=== PATIENT | male | born 1965 | race Caucasian/White ===

== ENCOUNTER 2020-01-13 11:03 | Emergency (ER) | payer BC ==
[2020-01-13 11:18] VITALS: BP 149/80
--- NOTE | 2020-01-13 11:33 | UC ---
Ear Complaint HPI - HPI Summary HPI Summary: Congestion and RIGHT ear plugged x3 weeks. Tried nasal sprays and otc decongestants w/ no relief. HAS OCCASIONAL COUGH BUT NO FEVER. denies known exposures to covid BUT DID TRAVEL TO [place] AND BACK IN DEC AND LANDED IN [facility] 12/20. Denies fever, sob. - History of Current Complaint Chief Complaint: UCRespiratory Stated Complaint: EAR COMPLAINT, CONGESTION Time Seen by Provider: 01/13/20 11:27 Hx Obtained From: Patient Pain Intensity: 0 - Allergies/Home Medications Allergies/Adverse Reactions: Allergies Allergy/AdvReac Type Severity Reaction Status Date / Time Penicillins Allergy Hives Verified 01/13/20 11:13 Home Medications: Home Medications NK [No Home Medications Reported] 01/13/20 [History Confirmed 01/13/20] PMH/Surg Hx/FS Hx/Imm Hx - Additional Past Medical History Additional PMH: no chronic illnesses Previously Healthy: Yes - Surgical History Surgical History: Yes Surgery Procedure, Year, and Place: tonsillectomy. wrist surgery - Family History Known Family History: Positive: Unknown - Social History Alcohol Use: Occasionally Substance Use Type: None Smoking Status (MU): Never Smoked Tobacco - Immunization History Most Recent Tetanus Shot: unknown Review of Systems All Other Systems Reviewed And Are Negative: Yes Constitutional: Negative: Fever, Chills, Fatigue ENT: Positive: Nasal Discharge, Sinus Congestion, Other - ear plugged R side. Negative: Sore Throat, Ear Ache, Sinus Pain/Tenderness Respiratory: Positive: Cough - occasional. Negative: Shortness Of Breath Cardiovascular: Negative: Chest Pain Neurological/Mental Status: Negative: Headache Physical Exam Triage Information Reviewed: Yes Appearance: Well-Appearing Vital Signs: Initial Vital Signs Temp 98.1 F 01/13/20 11:14 Pulse 71 01/13/20 11:14 Resp 16 01/13/20 11:14 BP 149/80 01/13/20 11:14 Pulse Ox 97 01/13/20 11:14 Vital Signs Reviewed: Yes Eyes: Positive: Conjunctiva Clear ENT: Positive: Pharynx normal, Nasal congestion, TMs normal, Uvula midline Neck: Positive: Supple, Nontender, No Lymphadenopathy Respiratory: Positive: Lungs clear Cardiovascular Exam: Normal Neurological: Positive: Alert. Negative: Lethargic Skin: Negative: Rashes Ear Complaint Course/Dx - Course Course Of Treatment: Simple URI symptoms and good vitals. There was some concern for COVID given mild symptoms but NO SOB. The concern was that he was coming from [place] from a plane in Dec 2019. RAPID STREP NEG. RAPID FLU NEG. ID Nurse/SPIKE OLIVIER called and discussed case on whether he should be 'approved' to be tested. She asked for demographic info due to different criteria from different counties. Due to the strict criteria from that particular county he was not approved to be tested. I discussed this w/ the pt. who was masked the entire time and was placed on droplet precaution after he was being considered for COVID testing. He is stable and was told to go to the emergency room if he develops worsening respiratory symptoms. - Differential Dx/Diagnosis Differential Diagnosis/HQI/PQRI: Pharyngitis, URI, Other Provider Diagnosis: URI (upper respiratory infection) Discharge ED - Sign-Out/Discharge Documenting (check all that apply): Patient Departure All imaging exams completed and their final reports reviewed: No Studies - Discharge Plan Condition: Stable Disposition: HOME Patient Education Materials: Upper Respiratory Infection (ED) Referrals: No Primary Care Phys,NOPCP [Primary Care Provider] - Additional Instructions: IF YOU DEVELOP ANY BREATHING ISSUES PLEASE GO TO THE EMERGENCY ROOM. - Billing Disposition and Condition Condition: STABLE Disposition: Home
[2020-01-13 12:24] LABS: Influenza A Molecular Negative (Negative); Influenza B Molecular Negative (Negative)
== END 2020-01-13 12:50 | disposition home or self-care (01) ==
LOC: UCCORT 11:03
DX: J06.9 Acute upper respiratory infection, unspecified (principal); R09.81 Nasal congestion; Z88.0 Allergy status to penicillin
CPT/HCPCS: 87651; 99201; G0463